=== PATIENT | female | born 1970 | race African-American/Black ===

== ENCOUNTER 2018-03-06 21:05 | Emergency (ER) | payer OTHER ==
[2018-03-06] MEDS ORDERED: Metoclopramide HCl 10 MG/2 ML VIAL ONE (23:46)
[2018-03-06] MEDS ORDERED: diphenhydrAMINE 50 MG/ML VIAL ONE (23:46)
[2018-03-06] MEDS ORDERED: Ketorolac Tromethamine 30 MG/ML VIAL ONE (23:46)
== END 2018-03-07 01:00 | disposition home or self-care (01) ==
LOC: ERS 21:05
DX: G43.909 Migraine, unspecified, not intractable, without status migrainosus (principal); J32.9 Chronic sinusitis, unspecified; Z79.899 Other long term (current) drug therapy
CPT/HCPCS: 96365; 96375; J1200; J1885; J2765

== ENCOUNTER 2018-09-30 15:00 | Outpatient (CLI) | payer OTHER ==
--- NOTE | 2018-10-31 08:14 | MMO ---
Bilateral MAMMO Bilat Screen [facility]. CLINICAL HISTORY: Patient is 48 years old and is seen for screening. The patient has no family history of breast cancer. The patient has no personal history of cancer. VIEWS: The views performed were: bilateral craniocaudal with tomosynthesis; bilateral mediolateral oblique; and bilateral mediolateral oblique with tomosynthesis. MAMMOGRAM FINDINGS: There are scattered fibroglandular densities. There are no suspicious masses, suspicious calcifications, or new areas of architectural distortion. IMPRESSION: THERE IS NO MAMMOGRAPHIC EVIDENCE OF MALIGNANCY. A ROUTINE FOLLOW-UP MAMMOGRAM IN 1 YEAR IS RECOMMENDED. THE RESULTS OF THIS EXAM WERE SENT TO THE PATIENT. ACR BI-RADS Category 1 - Negative MAMMOGRAPHY NOTE: 1. A negative mammogram report should not delay a biopsy if a dominant of clinically suspicious mass is present. 2. Approximately 10% to 15% of breast cancers are not detected by mammography. 3. Adenosis and dense breasts may obscure an underlying neoplasm.
== END 2018-09-30 15:01 | disposition home or self-care (01) ==
LOC: BICMAMMO 15:00
PROVIDERS: ATTEND Obstetrics & Gynecology
DX: Z12.31 Encounter for screening mammogram for malignant neoplasm of breast (principal)
CPT/HCPCS: 77063; 77067

== ENCOUNTER 2018-10-21 07:07 | Outpatient (CLI) | payer OTHER ==
--- NOTE | 2018-10-21 08:03 | MRI ---
MR the lumbar spine without contrast INDICATION: Low back pain with left-sided radiculopathy COMPARISON: Lumbar spinal radiograph dated June TECHNIQUE: Multiplanar multisequence MR images were obtained of lumbar spine without IV contrast. FINDINGS: Bone marrow: Bone marrow signal intensity appears within normal limits. Distal spinal cord and conus: Normal. The conus seen to terminate at L2. Visualized retroperitoneum and paraspinal soft tissues: Normal. Vertebral levels: L5-S1: There is moderate facet joint degenerative change at L5-S1 with grade 1 anterolisthesis. There is a broad-based bulge. There is no appreciable central canal or neural foraminal narrowing.. L4-5: There is mild facet joint degenerative change and a broad-based bulge with no appreciable centr al canal or neural foraminal narrowing. L3-4: No appreciable central canal or neuroforaminal narrowing. L2-3: No appreciable central canal or neuroforaminal narrowing. L1-L2: No appreciable central canal or neuroforaminal narrowing. T12-L1: No appreciable central canal or neuroforaminal narrowing. IMPRESSION: 1. Mild spondylosis of the lumbar spine most pronounced at L4-5 and L5-S1. No appreciable central can al or neural foraminal narrowing is evident. 2. Grade 1 anterolisthesis of L5 on S1 related to facet degenerative change.
== END 2018-10-21 07:08 | disposition home or self-care (01) ==
LOC: SCSMRI 07:07
PROVIDERS: ATTEND Family Medicine
DX: M47.816 Spondylosis without myelopathy or radiculopathy, lumbar region (principal); M47.817 Spondylosis without myelopathy or radiculopathy, lumbosacral region; M43.17 Spondylolisthesis, lumbosacral region
CPT/HCPCS: 72148

== ENCOUNTER 2019-03-03 12:12 | Outpatient (CLI) | payer OTHER ==
--- NOTE | 2019-03-03 14:19 | MRI ---
MRI CERVICAL SPINE: INDICATIONS: Cervical radiculopathy. FINDINGS: The cervical vertebrae maintain height and alignment. There is mild loss of disk space at C4-C5, C5- C6, and C6-C7. Mild osteophytes are seen at C4-C5 and C5-C6. At C2-C3, no significant disk bulge or spondylosis. At C3-C4, mild posterior disk bulge and spondylitic change efface the anterior subarachnoid space. N o cord impingement. At C4-C5, there is a central disk protrusion with associated spondylitic change. These changes impin ge on the cord, producing flattening and indentation of the anterior cord. No significant foraminal encroachment. At C5-C6, mild disk bulge and spondylosis flatten the thecal sac. The anterior subarachnoid space is preserved. At C6-C7, minimal disk bulge and spondylosis. The anterior subarachnoid space is maintained. There are symmetric changes paracentrally, on the left, flattening the anterior thecal sac on the left. No cord impingement or significant foraminal encroachment. Cord signal appears normally maintained. No evidence of myelomalacia. IMPRESSION: At C4-C5 there is a central disk protrusion with spondylitic change compressing the cord. POS: OFF
== END 2019-03-03 12:13 | disposition home or self-care (01) ==
LOC: BICMRI 12:12
PROVIDERS: ATTEND Specialist
DX: M50.121 Cervical disc disorder at C4-C5 level with radiculopathy (principal); M47.22 Other spondylosis with radiculopathy, cervical region
CPT/HCPCS: 72141

== ENCOUNTER 2019-03-06 08:18 | Outpatient (CLI) | payer OTHER ==
--- NOTE | 2019-03-06 10:37 | BD ---
DEXA SCAN: Date: 03/06/19 INDICATION: Postmenopausal osteoporosis screening. COMPARISON: None. FINDINGS: Lumbar Spine: BMD (g/cm2) L1 1.001 T-Score: 0.1 Z-Score: 0.7 L2 0.996 T-Score: -0.3 Z-Score: 0.4 L3 1.018 T-Score: -0.6 Z-Score: 0.1 L4 0.978 T-Score: -0.8 Z-Score: 0.0 L1-L4 0.998 T-Score: -0.4 Z-Score: 0.3 Femoral Neck: 0.819 T-Score: -0.3 Z-Score: 0.4 Total Femur: 1.025 T-Score: 0.7 Z-Score: 1.1 IMPRESSION: Based on WHO criteria, the patient's bone mineral density is considered within normal limits. Patient is at low risk for fracture. POS: OFF
== END 2019-03-06 08:19 | disposition home or self-care (01) ==
LOC: BICMAMMO 08:18
PROVIDERS: ATTEND Physician Assistant
DX: Z13.820 Encounter for screening for osteoporosis (principal); Z78.0 Asymptomatic menopausal state; Z90.722 Acquired absence of ovaries, bilateral; Z90.710 Acquired absence of both cervix and uterus
CPT/HCPCS: 77080

== ENCOUNTER 2019-06-25 07:37 | Outpatient (CLI) | payer OTHER ==
--- NOTE | 2019-06-25 08:32 | RAD ---
5 views of the cervical spine INDICATION: History of neck pain and left sided radiculopathy. FINDINGS: There are small bilateral cervical ribs at C7. Lateral masses are symmetric. There is advan raúl disc degenerative disease at C5-6 with loss of the normal cervical lordosis. Prevertebral soft tissues are normal appearing. No acute fractures evident. No abnormal translational motion is noted. IMPRESSION: Mild spondylosis of the cervical spine most pronounced at C5-6. No abnormal translational motion. Cervical ribs at C7.
--- NOTE | 2019-06-25 08:32 | RAD ---
XR Lumbar Spine Min 4 View: 06/25/2019 12:00 AM Low back pain and left-sided radiculopathy COMPARISON: None FINDINGS: Fracture: None. Alignment: There is grade 1 anterolisthesis of L5 on S1. No abnormal translational motion is evident. Degenerative Change: There is advanced facet osteoarthrosis at L4-5 and L5-S1. There is mild multile dorothea disc degenerative disease. Soft tissues: Normal appearing. Bowel gas pattern is unobstructed. IMPRESSION: Mild spondylosis lumbar spine. Grade 1 anterolisthesis of L5 on S1 without appreciable tr anslational motion.
== END 2019-06-25 07:38 | disposition home or self-care (01) ==
LOC: TBSIIMAG 07:37
PROVIDERS: ATTEND Surgery
DX: M54.5 Low back pain (principal); M54.2 Cervicalgia; M43.17 Spondylolisthesis, lumbosacral region; M47.812 Spondylosis without myelopathy or radiculopathy, cervical region; M47.816 Spondylosis without myelopathy or radiculopathy, lumbar region
CPT/HCPCS: 72050; 72110

== ENCOUNTER 2019-12-08 06:00 | Outpatient (CLI) | payer OTHER ==
[2019-12-08 14:11] LABS: Anion Gap 12 mmol/L (10-20); BUN (Urea Nitrogen) 10 mg/dL (7.0-18.7); Calc. Creatinine Clearance 0 mL/min (70-130); Calcium 9.1 mg/dL (7.8-10.44); Carbon Dioxide 25 mmol/L (22-29); Chloride 107 mmol/L (98-107); Estimated GFR-MDRD Greater than 90; Glucose 94 mg/dL (70-105); Potassium 4.1 mmol/L (3.5-5.1); Sodium 140 mmol/L (136-145)
[2019-12-08 14:17] LABS: Hemoglobin 12.5 g/dL (12.0-16.0); Mean Corpuscular Hemoglobin 22.5 pg (27.0-31.0); Mean Corpuscular Volume 70.4 fL (78.0-98.0); Mean Platelet Volume 7.4 fL (7.4-10.4); Platelet Count 278 thou/uL (130-400); RBC Distribution Width 12.9 % (11.5-14.5); Red Blood Cell (RBC) Count 5.54 mill/uL (4.20-5.40); White Blood Cell (WBC) Count 6.4 thou/uL (4.8-10.8)
[2019-12-08 14:19] LABS: Prothrombin Time 13.3 sec (12.0-14.7)
[2019-12-08 14:20] LABS: PTT 31.8 sec (22.9-36.1)
[2019-12-09 13:53] LABS: SARS-CoV-2 MS2 Positive; SARS-CoV-2 N Gene Negative; SARS-CoV-2 S Gene Negative; SARS-CoV-2 orf1ab Negative
== END 2019-12-08 06:01 | disposition home or self-care (01) ==
LOC: LABBT 06:00
PROVIDERS: ATTEND Surgery
DX: Z01.818 Encounter for other preprocedural examination (principal); Z11.59 Encounter for screening for other viral diseases; M50.10 Cervical disc disorder with radiculopathy, unspecified cervical region; M48.02 Spinal stenosis, cervical region
CPT/HCPCS: 80048; 85027; 85610; 85730; 87635; 93005; 93010; U0003

== ENCOUNTER 2019-12-11 05:43 | Day surgery (SDC) | payer OTHER ==
[2019-12-07 11:57] VITALS: BMI 29.5
[2019-12-11] MEDS ORDERED: Midazolam HCl 2 mg/2 ml Vial ONE ×2 (06:45→07:16)
[2019-12-11] MEDS ORDERED: Fentanyl 250 MCG/5 ML VIAL ONE (06:45)
[2019-12-11] MEDS ORDERED: Thrombin 5000 UNITS/5 ML VIAL ONE (07:03)
[2019-12-11] MEDS ORDERED: Promethazine HCl 25 MG/ML VIAL SLOW IVP PRN (09:33)
[2019-12-11] MEDS ORDERED: Promethazine HCl 25 MG/ML VIAL IM PRN (09:33)
[2019-12-11] MEDS ORDERED: Ondansetron HCl/PF 4 MG/2 ML Vial IVP PRN (09:33)
[2019-12-11] MEDS ORDERED: Acetaminophen 325 MG TAB PO PRN (09:45)
[2019-12-11] MEDS ORDERED: Acetaminophen/Codeine 30-300mg Tablet PO PRN (09:45)
[2019-12-11] MEDS ORDERED: Fleet Enema 133 ML BOT PR PRN (09:45)
[2019-12-11] MEDS ORDERED: Milk Of Magnesia 30 ML UDCUP PO PRN (09:45)
[2019-12-11] MEDS ORDERED: diphenhydrAMINE 25 MG CAP PO PRN (09:45)
[2019-12-11] MEDS ORDERED: HYDROcodone/Acetaminophen 7.5/325 mg Tablet PO PRN (09:45)
[2019-12-11] MEDS ORDERED: Ondansetron PF 4 MG/2 ML Vial IVP PRN (09:45)
[2019-12-11] MEDS ORDERED: Bisacodyl 10 MG SUPP PR PRN (09:45)
[2019-12-11] MEDS ORDERED: Morphine 2 MG/ML SYRINGE SLOW IVP PRN (09:45)
[2019-12-11] MEDS ORDERED: traMADol HCl 50 MG TAB PO PRN (09:45)
[2019-12-11] MEDS ORDERED: Mag-Al 1200 mg/1200 mg/30 ML UDCUP PO PRN (09:45)
[2019-12-11] MEDS ORDERED: SUMAtriptan Succinate 25 MG TAB PO PRN (09:48)
[2019-12-11] MEDS ORDERED: valACYclovir 500 MG TAB PO PRN (09:48)
[2019-12-11] MEDS ORDERED: Fentanyl 100 MCG/2 ML VIAL ONE ×2 (09:55→10:52)
[2019-12-11] MEDS ORDERED: Ketorolac Tromethamine 30 MG/ML VIAL ONE (09:55)
[2019-12-11] MEDS ORDERED: tiZANidine HCl 4 MG TAB ONE (10:28)
[2019-12-11] MEDS ORDERED: Dexamethasone 20 MG/5 ML VIAL ONE (11:12)
[2019-12-11] MEDS ORDERED: PHENYLEPHRINE-NS 100 MCG/ML 10 ML SYRINGE ONE (11:12)
[2019-12-11] MEDS ORDERED: Ondansetron PF 4 MG/2 ML Vial ONE (11:12)
[2019-12-11] MEDS ORDERED: EPHEDRINE 25 MG/5 ML SYRINGE ONE (11:12)
[2019-12-11] MEDS ORDERED: Rocuronium Bromide 10 MG/ML (10ML VIAL) ONE (11:12)
[2019-12-11] MEDS ORDERED: Lidocaine 1% PF 5 ML VIAL ONE (11:12)
[2019-12-11] MEDS ORDERED: Glycopyrrolate 0.2 MG/ML 5 ML SYRINGE ONE (11:12)
[2019-12-11] MEDS ORDERED: PROPOFOL 200 MG/20 ML VIAL ONE (11:12)
[2019-12-11] MEDS: Sodium Chloride 0.9% 1,000 ML IV SCH ×2 (12:07→22:05)
[2019-12-11] MEDS: CEFAZOLIN 2 GM in Premix Bag 1 BAG IVPB SCH ×2 (15:18→22:06)
--- NOTE | 2019-12-11 15:31 | OP ---
DATE OF PROCEDURE: 12/11/2019 [employer] ARTISAN: Hoa Downs PA-C PREPROCEDURE DIAGNOSIS: Cervical stenosis with neck and left arm pain. POSTPROCEDURE DIAGNOSIS: Cervical stenosis with neck and left arm pain. PROCEDURES PERFORMED: 1. Anterior C4-C5 and C5-C6 diskectomies for decompression of spinal cord and nerve roots. 2. Placement of interbody spacers, packed with graft C4-C5 and C5-C6. 3. Anterior cervical plate and screw fixation, C4, C5, C6. 4. Use of operative microscope for microdissection. DESCRIPTION OF PROCEDURE: After informed consent was obtained from the patient, the patient was brought to the OR. Proper patient, pause, and identification were carried out. She was placed under excellent general endotracheal anesthesia and positioned supine on the OR table. All appropriate points were padded. We identified the anterior C4 through C6 segments and a transverse wild was drawn out. This area was sterilely cleansed, prepared, and draped. Proper patient, pause, and identification were carried out. The wound was then opened with a combination of sharp, monopolar, and blunt dissection. We then proceeded lateral to the larynx and pharynx and medial to the right carotid sheath. We identified the prevertebral layer of deep cervical fascia. The C4 through C6 segments were exposed. Localization film confirmed our area of interest. We then performed a C4-C5 diskectomy following distraction, decompression of neural elements, placement of interbody spacer following preparation of the endplates. The space was packed with graft. We then released the distraction, did the same thing at C5-C6, diskectomy and placement of spacer, packed with graft. Copious irrigation occurred throughout as did maximizing hemostasis. Plate and screw construct then occurred following removal of microscope. Copious irrigation occurred throughout. We then maximized hemostasis, closed the wound in anatomic layers over a drain. Job ID: [id number]
[2019-12-11] MEDS: tiZANidine HCl 4 MG TAB PO PRN (18:32)
[2019-12-11] MEDS ORDERED: PREGABALIN 75 MG PO SCH (21:00)
[2019-12-11] MEDS ORDERED: Non-Formulary Item 1 EACH (Mirabegron [Myrbetriq] 50 MG) PO SCH (21:00)
[2019-12-11] MEDS: DULoxetine 30 MG CAP PO SCH ×2 (22:00)
[2019-12-11] MEDS: Pregabalin 75 MG CAP PO SCH (22:00)
[2019-12-12] MEDS: CEFAZOLIN 2 GM in Premix Bag 1 BAG IVPB SCH ×2 (06:27→16:49)
[2019-12-12] MEDS ORDERED: Docusate 100 MG CAP PO PRN (07:36)
[2019-12-12 07:53] VITALS: TEMP 98.7
[2019-12-12] MEDS ORDERED: Non-Formulary Item 1 EACH (Lifitegrast [Xiidra] 1 EACH) OP SCH (09:00)
[2019-12-12] MEDS ORDERED: Lifitegrast [Xiidra] EA EYE SCH (09:00)
--- NOTE | 2019-12-12 09:03 | PRG ---
DATE OF SERVICE: 12/12/2019 I saw Ms. Leiva this morning. She is one day out from a two-level ACDF. She has a sore throat and a drain is in place. There is tightness between her shoulders as are often is. I do not find any new neurological deficit. The drain output recorded is 30 mL. We will confirm the drain output before removing it. Once it is removed and she is safe for activities of daily living condition, she can be discharged. She is awaiting her cervical orthosis, which has been ordered. Job ID: [id number]
[2019-12-12] MEDS: Pregabalin 75 MG CAP PO SCH (09:54)
[2019-12-12] MEDS: tiZANidine HCl 4 MG TAB PO PRN (09:54)
[2019-12-12] MEDS: Sodium Chloride 0.9% 1,000 ML IV SCH (11:52)
[2019-12-12 12:58] VITALS: BP 100/69
--- NOTE | 2019-12-13 08:10 | DIS ---
DATE OF ADMISSION: 12/11/2019 DATE OF DISCHARGE: 12/12/2019 SUBJECTIVE: Ms. Leiva is a 49-year-old female, one day out from 2-level ACDF. Following her surgery, she was transitioned to the med-surg floor where her pain has been well controlled with p.o. medications. She is tolerating a regular diet and is voiding appropriately. Her GLO drain output trended downward and was removed this morning. She is otherwise doing well and ambulating easily in the halls and feels that she is ready to go home today. PHYSICAL EXAMINATION: Today, she is awake, alert, in no acute distress. She has free active range of motion of all extremities. No other focal weakness. No reflex asymmetry. Her incision is clean, dry, and intact. PLAN: We will plan to discharge Ms. Leiva home later today. I have discussed home care precautions with her. CONDITION ON DISCHARGE: The patient had no emergencies. Condition was stable for discharge. MEDICATIONS: Home going medications were reviewed. FOLLOWUP: Followup arrangements made by our behavioral health care coordinator in the clinic and call to the patient. ACTIVITIES: Restrictions were reviewed in person. Wound care showers are acceptable. The patient should pat the incision dry, but not submerge under the surface of the body of water for 2 months. Job ID: [id number]
== END 2019-12-12 14:47 | disposition home or self-care (01) ==
LOC: SDC 05:43 → SURG A 09:50 → SDC 12-12 14:47
PROVIDERS: ATTEND Surgery
PROC: 0RT30ZZ Resection of Cervical Vertebral Disc, Open Approach (ICD-10-PCS; principal; 2019-12-12)
PROC: 0RG20A0 Fusion of 2 or more Cervical Vertebral Joints with Interbody Fusion Device, Anterior Approach, Anterior Column, Open Approach (ICD-10-PCS; principal; 2019-12-12)
DX: M48.02 Spinal stenosis, cervical region (principal); M50.10 Cervical disc disorder with radiculopathy, unspecified cervical region; M48.061 Spinal stenosis, lumbar region without neurogenic claudication; Z79.899 Other long term (current) drug therapy
CPT/HCPCS: 76000; C1776; J0690; J1100; J1885; J2001; J2250; J2270; J2405; J2704; J3010; J3490; Q0163

== ENCOUNTER 2020-01-18 11:05 | Outpatient (CLI) | payer OTHER ==
--- NOTE | 2020-01-18 11:33 | MMO ---
Bilateral MAMMO Bilat Screen [facility]. CLINICAL HISTORY: Patient is 49 years old and is seen for screening. The patient has no family history of breast cancer. The patient has no personal history of cancer. VIEWS: The views performed were: bilateral craniocaudal with tomosynthesis and bilateral mediolateral oblique with tomosynthesis. FILMS COMPARED: The present examination has been compared to a prior imaging study performed at [facility] on 09/30/2018. This study has been interpreted with the assistance of computer-aided detection. MAMMOGRAM FINDINGS: There are scattered fibroglandular densities. There are no suspicious masses, suspicious calcifications, or new areas of architectural distortion. IMPRESSION: THERE IS NO MAMMOGRAPHIC EVIDENCE OF MALIGNANCY. A ROUTINE FOLLOW-UP MAMMOGRAM IN 1 YEAR IS RECOMMENDED. THE RESULTS OF THIS EXAM WERE SENT TO THE PATIENT. ACR BI-RADS Category 1 - Negative MAMMOGRAPHY NOTE: 1. A negative mammogram report should not delay a biopsy if a dominant of clinically suspicious mass is present. 2. Approximately 10% to 15% of breast cancers are not detected by mammography. 3. Adenosis and dense breasts may obscure an underlying neoplasm. Reported by: MARIE QUACH MD Electonically Signed: [id number]
== END 2020-01-18 11:06 | disposition home or self-care (01) ==
LOC: BICMAMMO 11:05
PROVIDERS: ATTEND Physician Assistant
DX: Z12.31 Encounter for screening mammogram for malignant neoplasm of breast (principal)
CPT/HCPCS: 77063; 77067

== ENCOUNTER 2020-01-20 13:45 | Outpatient (CLI) | payer OTHER ==
--- NOTE | 2020-01-20 14:51 | RAD ---
CERVICAL SPINE: 01/20/20 Five views. Five views were obtained in neutral, flexion and extension. INDICATIONS: Neck pain. Follow-up surgery. COMPARISON: 06/25/19 films. FINDINGS: Anterior fusion changes are now noted with anterior plate and screws transfixing C4, C5 and C6. Inter body implants at these levels. Posterior alignment is maintained. The other disc spaces are preserve d. Alignment is maintained with flexion and extension. IMPRESSION: Postop changes are now noted with ACDF changes at C4-5 and C5-6 levels as described. POS: AGW
--- NOTE | 2020-01-20 14:53 | RAD ---
LUMBAR SPINE: 01/20/20 Four views. Lateral views were obtained with neutral, flexion and extension. COMPARISON: 06/25/19. HISTORY: Back pain. FINDINGS: Lumbar vertebrae maintain normal height. Slight anterolisthesis at L5-S1 appears unchanged from the p rior study. This does not appear to change with flexion or extension. Disc spaces are preserved. Mild facet hypertrophy. IMPRESSION: Slight anterolisthesis at L5-S1 appears stable from prior study. POS: AGW
== END 2020-01-20 13:46 | disposition home or self-care (01) ==
LOC: TBSIIMAG 13:45
PROVIDERS: ATTEND Orthopaedic Surgery
DX: M54.2 Cervicalgia (principal); M54.5 Low back pain; M43.17 Spondylolisthesis, lumbosacral region; Z98.1 Arthrodesis status
CPT/HCPCS: 72050; 72110

== ENCOUNTER 2020-07-05 06:48 | Outpatient (CLI) | payer OTHER ==
[2020-07-05 13:47] LABS: Hemoglobin 12.7 g/dL (12.0-16.0); Mean Corpuscular HGB CONC 30.4 G/DL (32.0-36.0); Mean Corpuscular Hemoglobin 21.5 PG (27.0-33.0); Mean Corpuscular Volume 70.8 fl (80.0-100.0); Mean Platelet Volume 8.8 fl (7.4-10.4); Platelet Count 298 10x3/uL (130-400); White Blood Cell (WBC) Count 7.4 10x3/uL (4.5-11.0)
[2020-07-05 13:52] LABS: Anion Gap 14 mmol/L (10-20); BUN (Urea Nitrogen) 16 mg/dL (9.8-20.1); Calc. Creatinine Clearance 0 mL/min (70-130); Calcium 9.6 mg/dL (7.8-10.44); Carbon Dioxide 23 mmol/L (22-29); Chloride 106 mmol/L (98-107); Glucose 84 mg/dL (70-105); Potassium 4.4 mmol/L (3.5-5.1); Sodium 139 mmol/L (136-145)
[2020-07-05 14:06] LABS: PTT 29.3 sec (22.0-33.0); Prothrombin Time 10.9 sec (9.5-12.1)
[2020-07-06 16:52] LABS: Thyroid Stimulating Hormone 1.1082 uIU/mL (0.35-4.94)
[2020-07-06 23:38] LABS: Vitamin D, 25 Hydroxy 21.3 ng/ml (> 30.0)
[2020-07-07 07:26] LABS: SARS-CoV-2 NAA Rapid Test Not Detected (NotDetected)
--- NOTE | 2020-07-07 09:13 | EKG ---
Test Reason : Blood Pressure : / mmHG Vent. Rate : 074 BPM Atrial Rate : 074 BPM P-R Int : 138 ms QRS Dur : 076 ms QT Int : 374 ms P-R-T Axes : 053 070 052 degrees QTc Int : 415 ms Sinus rhythm with Premature atrial complexes Otherwise normal ECG No previous ECGs available Confirmed by GAUDENCIO FLANNERY ([id number]) on 07/07/2020 9:12:39 AM Referred By: FABIOLA Confirmed By:GAUDENCIO FLANNERY
== END 2020-07-05 06:49 | disposition home or self-care (01) ==
LOC: LABBT 06:48
PROVIDERS: ATTEND Surgery
DX: Z01.818 Encounter for other preprocedural examination (principal); Z20.822 Contact with and (suspected) exposure to COVID-19; M51.16 Intervertebral disc disorders with radiculopathy, lumbar region
CPT/HCPCS: 80048; 82306; 84443; 85027; 85610; 85730; 87635; 93005; 93010; U0002; U0003; U0005

== ENCOUNTER 2020-07-07 05:46 | Day surgery (SDC) | payer OTHER ==
[2020-07-04 15:04] VITALS: BMI 30.4
[2020-07-07] MEDS ORDERED: Thrombin 5000 UNITS/5 ML VIAL ONE (06:35)
[2020-07-07] MEDS ORDERED: Fentanyl 250 MCG/5 ML VIAL ONE (06:50)
[2020-07-07] MEDS ORDERED: Dexamethasone 20 MG/5 ML VIAL ONE (09:39)
[2020-07-07] MEDS ORDERED: Ondansetron PF 4 MG/2 ML Vial ONE ×2 (09:39→13:07)
[2020-07-07] MEDS ORDERED: Glycopyrrolate 0.2 MG/ML 5 ML SYRINGE ONE (09:39)
[2020-07-07] MEDS ORDERED: PROPOFOL 200 MG/20 ML VIAL ONE (09:39)
[2020-07-07] MEDS ORDERED: Lidocaine 1% PF 5 ML VIAL ONE (09:39)
[2020-07-07] MEDS ORDERED: PHENYLEPHRINE-NS 100 MCG/ML 10 ML SYRINGE ONE (09:39)
[2020-07-07] MEDS ORDERED: Ketorolac Tromethamine 30 MG/ML VIAL ONE (09:39)
[2020-07-07] MEDS ORDERED: Rocuronium Bromide 10 MG/ML (10ML VIAL) ONE (09:39)
[2020-07-07] MEDS ORDERED: traMADol HCl 50 MG TAB PO PRN (10:18)
[2020-07-07] MEDS ORDERED: Acetaminophen/Codeine 30-300mg Tablet PO PRN (10:18)
[2020-07-07] MEDS ORDERED: Acetaminophen 325 MG TAB PO PRN (10:18)
[2020-07-07] MEDS ORDERED: Morphine 2 MG/ML VIAL SLOW IVP PRN (10:18)
[2020-07-07] MEDS ORDERED: Ondansetron PF 4 MG/2 ML Vial IVP PRN (10:18)
[2020-07-07] MEDS ORDERED: Diazepam 5 MG TAB PO PRN (10:20)
[2020-07-07] MEDS ORDERED: oxyCODONE 5 MG TAB PO PRN (10:20)
--- NOTE | 2020-07-07 10:20 | OP ---
DATE OF PROCEDURE: 07/07/2020 AUDIOLOGIST: Hoa Downs PA-C PREPROCEDURE DIAGNOSIS: Low back with left leg pain with left L5 and left S1 radiculopathy. POSTPROCEDURE DIAGNOSIS: Low back with left leg pain with left L5 and left S1 radiculopathy. PROCEDURE PERFORMED: Left L4-L5 and left L5-S1 hemilaminotomies and foraminotomies for decompression of left L5 and left S1 nerve roots. DESCRIPTION OF PROCEDURE: After informed consent was obtained from the patient, the patient was brought to the OR. Proper patient, pause, and identification were carried out. She was placed under excellent endotracheal anesthesia and positioned prone on the OR table. All appropriate points were padded. We identified the L4-L5, L5-S1 dorsal spines. A linear wild was made over this region. This area was sterilely cleansed, prepared and draped. Proper patient, pause, and identification were carried out. The wound was then opened with a combination of sharp, monopolar, and blunt dissection. We proceeded to expose the left L4-L5 and left L5-S1 hemilamina facet complexes and yellow ligament. Localization film confirmed our area of interest. We then performed a left L4-L5, left L5-S1 hemilaminotomies and foraminotomies with excellent decompression of common dural tube. I assured freedom of the left L5 and left S1 nerve roots. Copious irrigation occurred throughout as did maximizing hemostasis. The wound was then closed in anatomic layers following sprinkling of vancomycin powder. The patient was emerged from anesthesia. Job ID: [id number]
[2020-07-07] MEDS ORDERED: valACYclovir 500 MG TAB PO PRN (10:21)
[2020-07-07] MEDS ORDERED: SUMAtriptan Succinate 25 MG TAB PO PRN (10:21)
[2020-07-07] MEDS ORDERED: Sodium Chloride 0.9% 1,000 ML IV SCH (10:30)
[2020-07-07] MEDS ORDERED: Fentanyl 100 MCG/2 ML VIAL ONE ×2 (10:44→11:05)
[2020-07-07] MEDS ORDERED: Acetaminophen/Codeine 30-300mg Tablet ONE (13:06)
[2020-07-07] MEDS ORDERED: CEFAZOLIN 2 GM in Premix Bag 1 BAG IVPB SCH (14:00)
[2020-07-07] MEDS ORDERED: Pregabalin 75 MG CAP PO SCH (21:00)
[2020-07-07] MEDS ORDERED: DULoxetine 60 MG CAP PO SCH (21:00)
[2020-07-08] MEDS ORDERED: Non-Formulary Item 1 EACH (Lifitegrast [Xiidra] 1 EACH Droperette) FS SCH (09:00)
[2020-07-10] MEDS ORDERED: Estrogens, Conjugated 30 GM TUBE VAG SCH (09:00)
== END 2020-07-07 14:35 | disposition home or self-care (01) ==
LOC: SDC 05:46
PROVIDERS: ATTEND Surgery
PROC: 01NB0ZZ Release Lumbar Nerve, Open Approach (ICD-10-PCS; principal; 2020-07-07)
DX: M51.16 Intervertebral disc disorders with radiculopathy, lumbar region (principal); M48.061 Spinal stenosis, lumbar region without neurogenic claudication; Z79.899 Other long term (current) drug therapy; Z88.5 Allergy status to narcotic agent
CPT/HCPCS: 76000; J0690; J1100; J1885; J2405; J2704; J3010; J3370

== ENCOUNTER 2020-07-25 11:09 | Outpatient (CLI) | payer OTHER ==
--- NOTE | 2020-07-25 11:25 | RAD ---
CERVICAL SPINE: 4 views INDICATIONS:Postop follow-up COMPARISON:None FINDINGS: Cervical vertebra maintain normal height and alignment Anterior plate and screws transfix C4, C5, and C6. Interbody implants at these levels. Disc spaces are preserved. Posterior elements are normally aligned. No evidence of fracture or osseous abnormality. No soft tissue abnormality identified. IMPRESSION: Postop changes as described.
== END 2020-07-25 11:10 | disposition home or self-care (01) ==
LOC: TBSIIMAG 11:09
PROVIDERS: ATTEND Surgery
DX: M54.12 Radiculopathy, cervical region (principal); M48.02 Spinal stenosis, cervical region; Z98.890 Other specified postprocedural states
CPT/HCPCS: 72040

== ENCOUNTER 2020-12-07 11:05 | Outpatient (CLI) | payer OTHER | END 2020-12-07 11:06 | disposition home or self-care (01) | LOC: RAD 11:05 | PROVIDERS: ATTEND Specialist | DX: M47.26 Other spondylosis with radiculopathy, lumbar region (principal); M43.16 Spondylolisthesis, lumbar region | CPT/HCPCS: 72120 ==

== ENCOUNTER 2021-01-05 12:05 | Outpatient (CLI) | payer OTHER | END 2021-01-05 12:06 | disposition home or self-care (01) | LOC: BICRAD 12:05 | PROVIDERS: ATTEND Family Medicine | DX: M47.26 Other spondylosis with radiculopathy, lumbar region (principal); M25.552 Pain in left hip; M43.17 Spondylolisthesis, lumbosacral region | CPT/HCPCS: 72120 ==

== ENCOUNTER 2021-03-01 10:46 | Outpatient (CLI) | payer OTHER | END 2021-03-01 10:47 | disposition home or self-care (01) | LOC: BICMRI 10:46 | PROVIDERS: ATTEND Specialist | DX: M51.16 Intervertebral disc disorders with radiculopathy, lumbar region (principal); L90.5 Scar conditions and fibrosis of skin; M89.38 Hypertrophy of bone, other site; Z98.890 Other specified postprocedural states | CPT/HCPCS: 72158 ==